=== PATIENT | male | born 1960 | race Caucasian/White ===

== ENCOUNTER 2022-08-19 09:00 | Day surgery (SDC) | payer BC ==
[~2022-08-19 09:00] MED LIST: EPINEPHrine 1 MG/ML 30 ML MDV IRR SCH; Lactated Ringers 1,000 ML IV SCH; Lidocaine 1%/Sod Bicarbonate in NS 8.4% 1 ML Syringe IDERM PRN; Sodium Chloride 0.9% 10 ML Syringe FLUSH PRN
[2022-08-19] MEDS ORDERED: Bupivacaine 0.25% 10 ML SDV ONE (09:15)
[2022-08-19] MEDS ORDERED: Propofol 200 MG/20 ML SDV ONE (09:18)
[2022-08-19] MEDS ORDERED: Midazolam 1 MG/ML 2 ML SDV ONE (09:19)
[2022-08-19] MEDS ORDERED: fentaNYL 100 MCG/2 ML SDV ONE (09:19)
[2022-08-19] MEDS ORDERED: Lidocaine 1% 6 ML ONE (09:23)
[2022-08-19] MEDS: Sodium Chloride 0.9% 10 ML Syringe FLUSH SCH (09:29)
[2022-08-19] MEDS ORDERED: fentaNYL 100 MCG/2 ML SDV IVPUSH PRN (09:39)
[2022-08-19] MEDS ORDERED: HYDROmorphone 0.5 MG/0.5 ML Syringe IVPUSH PRN (09:39)
[2022-08-19] MEDS ORDERED: ceFAZolin 2 GM Vial ONE (09:51)
[2022-08-19] MEDS ORDERED: Lactated Ringers 1,000 ML ONE (10:16)
[2022-08-19] MEDS ORDERED: ePHEDrine 50 MG/ML SDV ONE (10:20)
[2022-08-19] MEDS ORDERED: Ondansetron 4 MG/2 ML SDV ONE (10:37)
[2022-08-19] MEDS ORDERED: Dexamethasone 4 MG/ML 5 ML MDV ONE (10:37)
[2022-08-19] MEDS ORDERED: Acetaminophen/HYDROcodone 325-5 MG Tab PO PRN (11:16)
== END 2022-08-19 12:30 | disposition home or self-care (01) ==
LOC: JD.SDS 09:00
PROVIDERS: ATTEND Orthopaedic Surgery
DX: M23.221 Derangement of posterior horn of medial meniscus due to old tear or injury, right knee (principal); M22.41 Chondromalacia patellae, right knee; G89.29 Other chronic pain; E78.5 Hyperlipidemia, unspecified; R00.2 Palpitations; I44.7 Left bundle-branch block, unspecified; R00.1 Bradycardia, unspecified; M72.0 Palmar fascial fibromatosis [Dupuytren]; B35.3 Tinea pedis; Z79.899 Other long term (current) drug therapy
CPT/HCPCS: 29881; A9270; J0171; J0690; J1100; J2250; J2405; J2704; J3010; J3490; J7120; 01400

== ENCOUNTER 2023-03-31 08:42 | Day surgery (SDC) | payer MEDICARE, BC ==
[~2023-03-31 08:42] MED LIST changes: -EPINEPHrine 1 MG/ML 30 ML MDV IRR SCH; -Lidocaine 1%/Sod Bicarbonate in NS 8.4% 1 ML Syringe IDERM PRN; +Sodium Chloride 0.9% 10 ML Syringe FLUSH SCH
[2023-03-31] MEDS ORDERED: Bupivacaine 0.25% 10 ML SDV ONE (10:16)
[2023-03-31] MEDS ORDERED: EPINEPHrine 1 MG/ML SDV ONE (10:16)
[2023-03-31] MEDS ORDERED: Propofol 200 MG/20 ML SDV ONE (10:42)
[2023-03-31] MEDS ORDERED: fentaNYL 100 MCG/2 ML SDV ONE (10:42)
[2023-03-31] MEDS ORDERED: Midazolam 1 MG/ML 2 ML SDV ONE (10:43)
[2023-03-31] MEDS ORDERED: ceFAZolin 2 GM Vial ONE (10:46)
[2023-03-31] MEDS ORDERED: Lidocaine 2% 5 ML SDV ONE (10:47)
[2023-03-31] MEDS ORDERED: Dexamethasone 4 MG/ML 5 ML MDV ONE (10:53)
[2023-03-31] MEDS ORDERED: Metoclopramide 10 MG/2 ML SDV ONE (10:53)
[2023-03-31] MEDS ORDERED: Lactated Ringers 1,000 ML ONE (10:58)
[2023-03-31] MEDS ORDERED: Ondansetron 4 MG/2 ML SDV IVPUSH PRN (11:25)
[2023-03-31] MEDS ORDERED: HYDROmorphone 0.5 MG/0.5 ML Syringe IVPUSH PRN (11:25)
[2023-03-31] MEDS ORDERED: fentaNYL 100 MCG/2 ML SDV IVPUSH PRN (11:25)
[2023-03-31] MEDS ORDERED: Acetaminophen/HYDROcodone 325-5 MG Tab PO PRN (11:58)
== END 2023-03-31 13:25 | disposition home or self-care (01) ==
LOC: JD.SDS 08:42
PROVIDERS: ATTEND Orthopaedic Surgery
DX: S83.242A Other tear of medial meniscus, current injury, left knee, initial encounter (principal); M25.562 Pain in left knee; E78.00 Pure hypercholesterolemia, unspecified; Z79.899 Other long term (current) drug therapy; Z79.82 Long term (current) use of aspirin; X58.XXXA Exposure to other specified factors, initial encounter
CPT/HCPCS: 01400; A9270-GY; J0171; J0690; J1100; J2250; J2704; J2765; J3010; J3490; J7120